=== PATIENT | male | born 1995 | race Caucasian/White ===

== ENCOUNTER 2018-02-12 16:06 | Emergency (ER) | payer SELFPAY ==
[~2018-02-12] VITALS: Ht 175.3 cm; Wt 66.0 kg
[2018-02-12 16:25] VITALS: BP 118/75
== END 2018-02-12 22:14 | disposition left against medical advice (07) ==
LOC: ER 16:06
DX: M79.641 Pain in right hand (principal); F17.200 Nicotine dependence, unspecified, uncomplicated; Z53.21 Procedure and treatment not carried out due to patient leaving prior to being seen by health care provider